=== PATIENT | male | born 1985 | race Caucasian/White ===

== ENCOUNTER 2019-11-25 21:30 | Emergency (ER) | payer BC, OTHER ==
[2019-11-25 21:41] VITALS: PULSE 82; RESP 16; TEMP 98
--- NOTE | 2019-11-25 22:08 | XR ---
EXAMINATION TYPE: XR abdomen 2V DATE OF EXAM: 11/25/2019 COMPARISON: NONE HISTORY: Swallowed a razor blade TECHNIQUE: 2 views supine FINDINGS: Bowel gas pattern is normal. There is no sign of intestinal obstruction or pneumoperitoneum . Fecal pattern is normal. There is no sign of radiopaque foreign body. Lung bases are clear. There a re no pathologic calcifications over the kidneys. IMPRESSION: Nonacute abdomen.
--- NOTE | 2019-11-25 22:09 | XR ---
EXAMINATION TYPE: XR chest 1V DATE OF EXAM: 11/25/2019 COMPARISON: 05/29/2017 HISTORY: Chest pain TECHNIQUE: Single view. FINDINGS: Heart and mediastinum are normal. Lungs are clear. There is slight blunting left costophrenic angle. . Bony thorax appears intact. IMPRESSION: Minimal pleural scarring at the lateral left lung base unchanged. Normal heart. No acute lung disease.
--- NOTE | 2019-11-25 22:17 | ED ---
Psych HPI - General Chief Complaint: Psychiatric Symptoms Stated Complaint: Swallowed FB Time Seen by Provider: 11/25/19 21:34 Source: EMS, RN notes reviewed, old records reviewed Mode of arrival: EMS - History of Present Illness Initial Comments: 33 year old male presents from [facility] with reported attempted suicide attempt by swallowing a razor. PAtient reports he swallowed a box razor used for shaving. Patient denies abdominal pain, nausea or vomiting. He reports this happened 45 minutes ago. Patient has no difficulty swallowing and denies difficulty breathing. - Related Data Home Medications Medication Instructions Recorded Confirmed Multivitamins, Thera [Multivitamin 1 tab PO DAILY 05/29/17 05/29/17 (formulary)] Allergies Allergy/AdvReac Type Severity Reaction Status Date / Time No Known Allergies Allergy Verified 05/29/17 16:33 Review of Systems ROS Statement: Those systems with pertinent positive or pertinent negative responses have been documented in the HPI. ROS Other: All systems not noted in ROS Statement are negative. Past Medical History Past Medical History: No Reported History History of Any Multi-Drug Resistant Organisms: None Reported Past Surgical History: No Surgical Hx Reported Past Psychological History: No Psychological Hx Reported Smoking Status: Never smoker Past Alcohol Use History: None Reported Past Drug Use History: None Reported General Exam - General Exam Comments Initial Comments: 33 year old male, no distress. Limitations: no limitations General appearance: alert, in no apparent distress Head exam: Present: atraumatic, normocephalic, normal inspection Eye exam: Present: normal appearance, PERRL, EOMI. Absent: scleral icterus, conjunctival injection, periorbital swelling ENT exam: Present: normal exam, mucous membranes moist Neck exam: Present: normal inspection. Absent: tenderness, meningismus, lymphadenopathy Respiratory exam: Present: normal lung sounds bilaterally. Absent: respiratory distress, wheezes, rales, rhonchi, stridor Cardiovascular Exam: Present: regular rate, normal rhythm, normal heart sounds. Absent: systolic murmur, diastolic murmur, rubs, gallop, clicks GI/Abdominal exam: Present: soft, normal bowel sounds. Absent: distended, tenderness, guarding, rebound, rigid Back exam: Present: normal inspection Neurological exam: Present: alert, oriented X3, CN II-XII intact Psychiatric exam: Present: normal affect, normal mood Course Vital Signs 11/25/19 11/25/19 21:31 22:52 Temperature 98.0 F Pulse Rate 82 82 Respiratory 16 16 Rate Blood Pressure 146/94 144/94 O2 Sat by Pulse 96 99 Oximetry Medical Decision Making - Medical Decision Making 33 year old male presents with reported razor swallowing and suicide attempt. He has no abdominal pain, abdomen is soft and non tender. PAtient has no difficulty breathing. KUB and CXR shows no metalic foreign body. Patient is cleared to go back to [facility] and to be on suicide watch. Discussed if patient were to have pain patient can return to ED. - Radiology Data Radiology results: report reviewed KUB and CXR shows no evidence of metallic foreign body. No signs of obstruction. Disposition Clinical Impression: Suspected condition not found, Suicidal risk Disposition: HOME SELF-CARE Condition: Stable Instructions (If sedation given, give patient instructions): Help Prevent Suicide (ED) Additional Instructions: Patient is to monitor bowel movements if ingested plastic. There is no foreign body or metal on xray consistent with swallowing a razor blade. Patient should be on suicide precaution. If there is severe abdominal pain, patient could return to ED for reevaluation. Is patient prescribed a controlled substance at d/c from ED?: No Referrals: Lul Castañeda MD [Primary Care Provider] - 1-2 days Time of Disposition: 22:15
[2019-11-25 22:54] VITALS: BP 144/94
== END 2019-11-25 22:23 | disposition home or self-care (01) ==
LOC: EC 21:30
DX: R45.851 Suicidal ideations (principal)
CPT/HCPCS: 71045; 74019; 82075; 99285